=== PATIENT | male | born 1985 | race African-American/Black ===

== ENCOUNTER 2018-08-31 08:18 | Emergency (ER) | payer OTHER ==
[2018-08-31 08:26] VITALS: TEMP 98
[2018-08-31] MEDS ORDERED: DIPH,PERTUS(ACELL)TETVAC-LF 0.5 ML VIAL IM ONE (08:33)
--- NOTE | 2018-08-31 09:21 | CT ---
EXAMINATION TYPE: CT facial bones wo con DATE OF EXAM: 08/31/2018 COMPARISON: None HISTORY: Kicked in face by horse CT DLP: [employer] with Brain mGycm Automated exposure control for dose reduction was used. TECHNIQUE: CT scan of the sinuses is performed without contrast, axial images are obtained, coronal r eformatted images are also reviewed. FINDINGS: Tiny mucous retention cyst within the left maxillary sinus and there is mucosal thickening involving maxillary sinus and ethmoid air cells compatible with chronic sinusitis. The ostiomeatal co mplex is patent bilaterally on the coronal images. Nonspecific calcifications in the right parapharyn geal soft tissues. Visualized portion of mastoid air cells show no abnormal opacification. The globes are intact bilate rally. IMPRESSION: 1. No acute fracture. 2. Chronic sinusitis.
--- NOTE | 2018-08-31 09:27 | CT ---
EXAMINATION TYPE: CT brain franco jansen DATE OF EXAM: 08/31/2018 COMPARISON: None HISTORY: Kicked in face by horse CT DLP: 957.1 mGycm Automated exposure control for dose reduction was used. TECHNIQUE: CT scan of the head and cervical spine are performed without contrast. FINDINGS: There is no acute intracranial hemorrhage, mass effect, or midline shift identified. The ventricles and sulci are within normal limits in size. Prominent cisterna magna. Cervical spine is visualized in its entirety from C1 through upper thoracic levels and demonstrates s atisfactory alignment without evidence of acute fracture or dislocation. Prevertebral soft tissue ap pears within normal limits. The C1-C2 articulation is unremarkable. Hypertrophic change C5-C6. Stra ightening of the cervical spine is nonspecific and be seen with muscular spasm. Correlate clinically assessment spinal canal nondiagnostic due to resolution and artifact IMPRESSION: 1. There is no acute fracture or dislocation evident in the cervical spine. 2. No acute intracranial hemorrhage, mass effect, or midline shift is seen.
--- NOTE | 2018-08-31 09:30 | ED ---
General Adult HPI - General Chief complaint: Head Injury Stated complaint: [facility] - kicked in the head by a horse Time Seen by Provider: 08/31/18 08:30 Source: patient, RN notes reviewed Mode of arrival: wheelchair Limitations: no limitations - History of Present Illness Initial comments: This a 33-year-old male presents emergency Department with chief complaint of facial injury. Patient states he was at work today states he was kicked in the face by a horse. Patient states that did not cause any loss conscious. He states he did not get knocked down he denies any neck pain. Patient complains of laceration to left side of his nose. He is unsure when his last tetanus was. Patient denies any loose dentition no ocular pain no blurred or double vision. - Related Data Previous Rx's Medication Instructions Recorded Amoxicillin/Potassium Clav 1 tab PO Q12HR #14 tab 08/31/18 [Augmentin 875-125 Tablet] Allergies Allergy/AdvReac Type Severity Reaction Status Date / Time No Known Allergies Allergy Verified 08/31/18 08:47 Review of Systems ROS Statement: Those systems with pertinent positive or pertinent negative responses have been documented in the HPI. ROS Other: All systems not noted in ROS Statement are negative. Past Medical History Past Medical History: No Reported History History of Any Multi-Drug Resistant Organisms: None Reported Past Surgical History: No Surgical Hx Reported Past Psychological History: No Psychological Hx Reported Smoking Status: Never smoker Past Alcohol Use History: None Reported Past Drug Use History: None Reported General Exam Limitations: no limitations General appearance: alert, in no apparent distress Head exam: Present: atraumatic, normocephalic, normal inspection Eye exam: Present: normal appearance, PERRL, EOMI. Absent: scleral icterus, conjunctival injection, periorbital swelling Pupils: Present: normal accommodation ENT exam: Present: normal oropharynx (No injury no loose dentition), mucous membranes moist, TM's normal bilaterally, normal external ear exam. Absent: normal exam (Through and through laceration the left nostril with minimal active bleeding mild tenderness) Neck exam: Present: normal inspection, full ROM. Absent: tenderness, meningism us, lymphadenopathy Respiratory exam: Present: normal lung sounds bilaterally. Absent: respiratory distress, wheezes, rales, rhonchi, stridor Cardiovascular Exam: Present: regular rate, normal rhythm, normal heart sounds. Absent: systolic murmur, diastolic murmur, rubs, gallop, clicks Neurological exam: Present: alert, oriented X3, CN II-XII intact, reflexes normal. Absent: motor sensory deficit Skin exam: Present: warm, dry, intact, normal color. Absent: rash Course Vital Signs 08/31/18 08:23 Temperature 98 F Pulse Rate 73 Respiratory 16 Rate Blood Pressure 130/76 O2 Sat by Pulse 99 Oximetry Disposition Clinical Impression: Facial contusion, Laceration of nose Disposition: HOME SELF-CARE Condition: Stable Instructions (If sedation given, give patient instructions): Care For Your Stitches (ED), Facial Laceration (ED) Additional Instructions: Have sutures removed in 7 days.Please return to the Emergency Department if symptoms worsen or any other concerns. Prescriptions: Amoxicillin/Potassium Clav [Augmentin 875-125 Tablet] 1 tab PO Q12HR #14 tab Is patient prescribed a controlled substance at d/c from ED?: No Referrals: None,Stated [Primary Care Provider] - 1-2 days Russel Saini MD [STAFF PHYSICIAN] - 1-2 days Time of Disposition: 10:31
[2018-08-31] MEDS ORDERED: LIDOCAINE 1% INJ 10MG/ML (20 ML MDV) SQ ONE (09:36)
[2018-08-31 10:52] VITALS: BP 128/78; PULSE 88; RESP 18
--- NOTE | 2018-08-31 10:52 | ED ---
Disposition Clinical Impression: Facial contusion, Laceration of nose Disposition: HOME SELF-CARE Condition: Stable Instructions (If sedation given, give patient instructions): Care For Your Stitches (ED), Facial Laceration (ED) Additional Instructions: Have sutures removed in 7 days.Please return to the Emergency Department if symptoms worsen or any other concerns. Prescriptions: Amoxicillin/Potassium Clav [Augmentin 875-125 Tablet] 1 tab PO Q12HR #14 tab Is patient prescribed a controlled substance at d/c from ED?: No Referrals: None,Stated [Primary Care Provider] - 1-2 days Russel Saini MD [STAFF PHYSICIAN] - 1-2 days Procedures - Laceration Laceration #1 Consent Obtained: verbal consent Indication: laceration Site: face (Left nostril) Size (cm): 3 Description: irregular Depth: [id number] Anesthetic Used: lidocaine 1%, without epi Anesthesia Technique: local infiltration Amount (mls): 4 Pre-repair: wound explored, irrigated extensively, deep structures intact Type of Sutures: nylon Size of Sutures: 6-0 Number of Sutures: 11 Technique: simple, interrupted Patient Tolerated Procedure: well, no complications
== END 2018-08-31 10:45 | disposition home or self-care (01) ==
LOC: EC 08:18
DX: S01.21XA Laceration without foreign body of nose, initial encounter (principal); S00.83XA Contusion of other part of head, initial encounter; Z23 Encounter for immunization; W55.12XA Struck by horse, initial encounter; Y99.0 Civilian activity done for income or pay; Y92.69 Other specified industrial and construction area as the place of occurrence of the external cause
CPT/HCPCS: 99283; 90471; 12013; 72125; 70486; 70450; 90715; J2001